=== PATIENT | female | born 1960 | race Hispanic/Latino ===

== ENCOUNTER → 2017-04-10 | Day surgery (SDC) | payer MEDICARE, OTHER ==
[2017-04-09 09:56] LABS: BASOPHILS % 0.5 % (0.0-1.0); EOSINOPHILS # (AUTO) 0.3 (0.0-0.4); EOSINOPHILS % 4.2 % (0.0-6.0); HEMOGLOBIN 13.4 g/dL (12.0-16.0); LYMPHOCYTES # (AUTO) 1.9 (1.0-3.2); LYMPHOCYTES % 30.3 % (18.0-39.1); MEAN CORPUSCULAR HEMOGLOBIN 29.6 pg (28-32); MEAN CORPUSCULAR HGB CONC 33.5 g/dL (31-35); MEAN CORPUSCULAR VOLUME 88.5 fL (81-99); MONOCYTES # (AUTO) 0.4 (0.2-0.8); MONOCYTES % 6.7 % (4.4-11.3); NEUTROPHILS # (AUTO) 3.7 (2.1-6.9); NEUTROPHILS % 57.8 % (38.7-80.0); PLATELET COUNT 281 x10e3/uL (140-360); RED BLOOD COUNT 4.52 x10e6/uL (3.6-5.1); RED CELL DISTRIBUTION WIDTH 12.9 % (11.7-14.4)
[2017-04-09 10:12] LABS: PROTHROMBIN TIME 12.4 seconds (11.9-14.5)
[2017-04-09 10:16] LABS: ALANINE AMINOTRANSFERASE 22 IU/L (0-55); ALBUMIN 3.4 g/dL (3.5-5.0); ALBUMIN/GLOBULIN RATIO 0.9 (0.8-2.0); ALKALINE PHOSPHATASE 109 IU/L (40-150); ANION GAP 9.8 mmol/L (8-16); BLOOD UREA NITROGEN 17 mg/dL (7-26); BUN/CREATININE RATIO 27 (6-25); CALCIUM 8.7 mg/dL (8.4-10.2); CARBON DIOXIDE 27 mmol/L (22-29); CHLORIDE 102 mmol/L (98-107); CHOL/HDL RATIO 3.4 (3.0-3.6); CHOLESTEROL 185 MD/DL (0-199); CREATININE, SERUM 0.64 mg/dL (0.57-1.11); EST GLOMERULAR FILTRATION RATE > 60 ML/MIN (60-); GLUCOSE 96 mg/dL (74-118); HDL CHOLESTEROL 55 MG/DL (40-60); LDL CHOLESTEROL 107 MG/DL (60-130); POTASSIUM 3.8 mmol/L (3.5-5.1); SODIUM 135 mmol/L (136-145); TRIGLYCERIDES 115 MG/DL (0-149)
[~2017-04-10] VITALS: Ht 152.4 cm; Wt 82.6 kg
[~2017-04-10] MED LIST: ALPRAZOLAM 0.5 MG TAB PRN; ASPIR 8181 MG PO; CARVEDILOL3.125 MG PO; DIPHENHYDRAMINE HCL 25 MG CAP PRN; FENTANYL CITRATE/PF 100MCG/2 ML INJ PRN; FISH OIL 1,0001 EAC2 PO; FISH OIL500 M1 PO; GARCINIA PO; HEPARIN SOD (PORCINE) 1000 UNIT/ML 30ML PRN; HEPARIN SOD/SOD CHLORIDE 2,000 ML PRN; IOPAMIDOL 370 MG/ML 200 ML INFUS..BTL INJ PRN; LIDOCAINE HCL 2% LOCAL 20 ML VIAL PRN; MIDAZOLAM HCL 2 MG/2 ML VIAL PRN; MILK THISTLE140 M1 PO; NITROGLYCERIN/D5W 200 MCG/ML 250 ML PRN; OMEPRAZOLE20 MG PO; OMEPRAZOLE40 MG; PRAVASTATIN SOD20 MG PO; SODIUM CHLORIDE 0.9% 1000ML 1,000 ML PRN; SPIRIVA18 MCG INH; TRAMADOL HCL100 MG PO; VERAPAMIL HCL 2.5 MG/ML 2 ML VIAL PRN
[2017-04-10 10:08] VITALS: BP 133/80
--- NOTE | 2017-04-10 14:01 | Operative Report ---
DATE OF PROCEDURE: April 10, 2017 INDICATIONS: Coronary artery disease. Unstable angina. PROCEDURES PERFORMED 1. Left heart catheterization, selective coronary angiography. 2. Deployment of right wrist transradial band. COMPLICATIONS: None. RECOMMENDATIONS: Medical therapy. Access was obtained in the right radial artery using ultrasound guidance. A 5-Stateless sheath was placed. Diagnostic coronary angiogram revealed no angiographic coronary artery disease, with excellent flow in all vessels. No critical stenosis or occlusions. A right wrist TR band applied. Patient discharged home same day. Job#: [id number]
== END | disposition home or self-care (01) ==
LOC: CATH LAB 08:32
PROVIDERS: ATTEND Internal Medicine Interventional Cardiology
DX: I25.700 Atherosclerosis of coronary artery bypass graft(s), unspecified, with unstable angina pectoris (principal); Z01.812 Encounter for preprocedural laboratory examination; J44.9 Chronic obstructive pulmonary disease, unspecified; Z68.36 Body mass index [BMI] 36.0-36.9, adult; Z95.1 Presence of aortocoronary bypass graft; Z82.49 Family history of ischemic heart disease and other diseases of the circulatory system
CPT/HCPCS: 36415; 77002; 80053; 80061; 85025; 85610; 93458; C1887; J1644; J2001; J2250; J7030; Q9967; 36140